=== PATIENT | male | born 1950 | race Caucasian/White ===

== ENCOUNTER 2024-07-05 13:03 | Outpatient (CLI) | payer MEDICARE, SELFPAY ==
--- NOTE | ~2024-07-05 | CT_ITS ---
EXAMINATION:CT lung screening DATE: 07/05/2024 13:57 INDICATION: Nicotine dependence. Current smoker with 30 pack year history. TECHNIQUE: Computed tomography (CT) of the chest was performed without intravenous contrast. Automate d exposure control and iterative reconstruction technique were employed. The dose-length product (DLP ) was 126.56 mGy-cm. COMPARISON: None. FINDINGS: There is mild emphysema. There is mild bronchiectasis in the inferior lungs. There is mild atelectasis bilaterally. Calcified right lung nodules and calcified right hilar and mediastinal lymph nodes are consistent with old granulomatous disease. No pleural effusion. The heart size is normal. There are coronary artery calcifications. No pericardial effusion. 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 Calcifications in the liver and spleen are consistent with old granulomatous disease. There is a 10 mm mass in left adrenal gland measuring low attenuation, consistent with an adenoma. There is mild chronic anterior wedging of multiple thoracic vertebral bodies. There is mild thoracic spondylosis. There is an old healed fracture of the sternum. IMPRESSION: 1. Lung-RADS category 1: Negative. Continue annual screening with noncontrast low-dose chest CT in 12 months. Reviewed, dictated and finalized at location A. CT CASTING OPERATOR IMPRESSION: 1. Lung-RADS category 1: Negative. Continue annual screening with noncontrast l ow-dose chest CT in 12 months.
--- OUTSIDE RECORDS SUMMARY | 2024-07-05 13:54 | XMS_ITS | CONTINUITY OF CARE DOCUMENT ---
Author Name rita salinas Address Unknown Organization [facility] Address [id number] [place] [address] [address] [place] [address] Phone [phone] Care Team Providers Care Materials Manager Name Role Phone Uvaldo Joaquin MD Unavailable Uvaldo Joaquin MD Unavailable [phone] INS[employer]ANCE PROVID[employer] Payer name Policy type / Coverage type Ararat red green party ID [facility] Other [facility] MEDICARE ADVANTAGE PLAN (PPO) Medicare [id number]
== END 2024-07-05 13:04 | disposition home or self-care (01) ==
PROVIDERS: PCP Internal Medicine; Visit Provider Internal Medicine
DX: Z12.2 Encounter for screening for malignant neoplasm of respiratory organs (principal); Z87.891 Personal history of nicotine dependence
CPT/HCPCS: 71271